=== PATIENT | female | born 1950 | race Caucasian/White ===

== ENCOUNTER 2018-04-17 07:08 | Day surgery (SDC) | payer OTHER ==
[2018-04-14 10:05] VITALS: BMI 39.0
[2018-04-17 08:45] LABS: URINE APPEARANCE SLCLOUDY; URINE BILIRUBIN NEGATIVE (<2.0 mg/dL); URINE COLOR YELLOW; URINE GLUCOSE (UA) 2+ (NEGATIVE); URINE KETONE TRACE (NEGATIVE); URINE LEUK ESTERASE NEGATIVE (NEGATIVE); URINE NITRITE NEGATIVE (NEGATIVE); URINE PROTEIN NEGATIVE (NEGATIVE); URINE UROBILINOGEN NEGATIVE mg/dL (0.2-1.0)
[2018-04-17] MEDS ORDERED: LIDOCAINE HCL 1%, 10 MG/ML (20ML VIAL) ONE (08:59)
[2018-04-17] MEDS ORDERED: METHYLENE BLUE 1% 10 MG/1 ML VIAL NR ONE (09:59)
[2018-04-17] MEDS ORDERED: PROPOFOL 20 ML ONE (10:48)
[2018-04-17] MEDS ORDERED: MIDAZOLAM HCL 2 MG/2 ML SINGLE DOSE VIAL ONE (10:48)
[2018-04-17] MEDS ORDERED: KETOROLAC TROMETHAMINE 30 MG/1 ML VIAL ONE (10:49)
[2018-04-17] MEDS ORDERED: DEXAMETHASONE SOD PHOSPHATE 4 MG/1 ML VIAL ONE (10:49)
[2018-04-17] MEDS ORDERED: LIDOCAINE HCL/PF 2% SDV 5ML VIAL ONE (10:49)
[2018-04-17] MEDS ORDERED: LIDOCAINE HCL 1% PRESERVATIVE FREE - 30ML VIAL IJ ONE (11:00)
[2018-04-17] MEDS ORDERED: SUCCINYLCHOLINE CHLORIDE 200 MG/10 ML VIAL ONE (12:04)
[2018-04-17] MEDS ORDERED: ceFAZolin SODIUM 1 GM VIAL ONE (12:47)
[2018-04-17] MEDS ORDERED: METHYLENE BLUE 1% 10 MG/1 ML VIAL IVPUSH ONE (14:30)
[2018-04-17 15:01] VITALS: BP 133/61; PULSE 88; TEMP 97.9
--- NOTE | 2018-04-18 07:08 | OP ---
DATE OF OPERATION: 04/17/2018 PREOPERATIVE DIAGNOSIS: Left breast cancer. POSTOPERATIVE DIAGNOSIS: Left breast cancer. PROCEDURE: Left breast lumpectomy and sentinel lymph node biopsy. SURGEON: Melanie Armando MD ANESTHESIA: General. ESTIMATED BLOOD LOSS: Minimal. COMPLICATIONS: None. This was a sterile procedure. INDICATION FOR PROCEDURE: Patient presented with a palpable mass in the inner left breast. A needle biopsy showed invasive carcinoma. My recommendation was a lumpectomy and sentinel node biopsy. The procedure was discussed with her. All of her questions answered. PROCEDURE IN DETAIL: Patient was brought to [facility], taken into the operating room, and after induction of general anesthesia and IV antibiotics, the right breast and axilla were prepped and draped in usual sterile fashion. Next, 2.5 mL of methylene blue diluted with 2.5 mL of injectable saline were injected into the left subareolar plexus by me, and the breast was massaged for 5 minutes. Prior to her coming into the operating theater, she was taken down to Nuclear Medicine where I injected technetium-labeled sulfur colloid as an intradermal injection in the left breast at 9 o'clock location. Then, she was brought up to the operating room and so forth. The left breast and axilla were prepped and draped in the usual sterile fashion. A 4-cm incision was made in the left axilla, carried down to the clavipectoral fascia to identify sentinel lymph node number 1, that was slightly firm in feeling, was hot and blue. This was sent as sentinel node number 1 hot and blue. There were 2 other sentinel lymph nodes that were hot but not blue. The third one was not as hot as the very first. Initially, I thought there was some activity in vivo. However, ex vivo did not have any activity. Therefore, the next specimen was sent as a left axillary non-sentinel node. There was no other blue dye radioactivity or pathologic-feeling lymph nodes in the left axilla. Therefore, once hemostasis was assured, the left breast lumpectomy was performed. An ellipse of skin was taken overlying the palpable mass in the left breast 9 o'clock to 10 o'clock location, 3-4 cm from the nipple, and an en bloc lumpectomy was performed, tagged with a long stitch lateral, short stitch superior, sent to Pathology for permanent section. Grossly, I felt I was close inferiorly. Therefore, I took a left breast new inferior margin with a stitch at the old margin. This was also sent to Pathology for permanent section. Hemostasis was assured with electrocautery. The parenchyma approximated with interrupted 2-0 Vicryl, skin approximated with interrupted 3-0 Vicryl running and 4-0 Biosyn. A sterile dressing with Tegaderm was applied. Next, the axillary incision was also closed in routine fashion with interrupted 3-0 Vicryl and running 4-0 Biosyn. A sterile dressing with Tegaderm was applied. She tolerated the procedure well, was extubated on the operating room table, taken to Recovery in good condition. Ismael [id number]
--- NOTE | 2018-04-21 17:39 | PATH ---
Surgical Pathology Report Patient Name: ROBERT LUTZ [facility]. Rec. #: [id number] /Age/Gender: 1950 (Age: 68) / F Account: [id number] Location: [facility] Taken: 04/17/2018 Received: 04/17/2018 Reported: 04/21/2018 Physicians: Melanie Armando M.D. Specimen(s) Received A: LEFT SENTINEL LYMPH NODE #1 B: LEFT SENTINEL LYMPH NODE #2 C: LEFT SENTINEL LYMPH NODE AXILLARY #3 D: LEFT BREAST TISSUE E: LEFT BREAST NEW INFERIOR MARGIN F: LEFT AXILLARY NON SENTINEL LYMPH NODE Clinical History Left breast cancer Final Diagnosis A. Axillary sentinel Lymph node #1, left, excision: One benign lymph node (0/1). B. Axillary sentinel Lymph node #2, left, excision: Benign fibroadipose tissue. No lymphoid tissue identified. C. Axillary sentinel Lymph node #3, left, excision: One benign lymph node (0/1). D. Breast, left, excision: INVASIVE DUCTAL CARCINOMA, POORLY DIFFERENTIATED (TUBULE SCORE: 3/3, NUCLEAR GRADE: 2/3, MITOTIC SCORE: 3/3; TOTAL SANDRINE SCORE: 8/9). INVASIVE CARCINOMA MEASURES 2.6 CM IN GREATEST DIMENSION, MICROSCOPICALLY. NO IN SITU COMPONENT IDENTIFIED. NO LYMPHOVASCULAR INVASION IDENTIFIED. SURGICAL MARGINS ARE UNINVOLVED BY CARCINOMA; CARCINOMA IS 1 MM FROM THE CLOSEST INFERIOR MARGIN. SEE SPECIMEN E FOR FINAL INFERIOR MARGIN. SKIN IS PRESENT AND UNINVOLVED BY CARCINOMA. PRIOR BIOPSY SITE CHANGES ARE PRESENT. PATHOLOGIC STAGE (pTNM): pT2 pN0 (sn). SEE INVASIVE CARCINOMA CASE SUMMARY BELOW. E. Breast, left, inferior margin, excision: Benign PREDOMINANTLY FATTY BREAST tissue. F. Axillary NON-sentinel Lymph node, left, excision: Benign fibroadipose tissue. No lymphoid tissue identified. Comments Breast Invasive Carcinoma: Surgical Pathology Case Summary (Based on AJCC TNM 8 th edition) Procedure _X_ Excision (less than total mastectomy) Specimen Laterality _X_ Left Tumor Size _X_ Greatest dimension of largest invasive focus >1 mm (specify exact measurement) (millimeters): _26__ mm Histologic Type _X_ Invasive carcinoma of no special type (ductal, not otherwise specified) Histologic Grade (Sandrine Histologic Score) Glandular (Acinar)/Tubular Differentiation _X_ Score 3 (<10% of tumor area forming glandular/tubular structures) Nuclear Pleomorphism _X_ Score 2 Mitotic Rate _X_ Score 3 Overall Grade _X_ Grade 3 (scores of 8) Tumor Focality _X_ Single focus of invasive carcinoma Ductal Carcinoma In Situ (DCIS) __X_ No DCIS in specimen Margins Invasive Carcinoma Margins _X__ Uninvolved by invasive carcinoma Distance from closest margin (millimeters): 1 mm in wide excision (D); negative in final margin (E) Closest margin: Inferior DCIS Margins _X_ No DCIS in specimen Regional Lymph Nodes Number of Lymph Nodes with Macrometastases (>2 mm): 0 Number of Lymph Nodes with Micrometastases (>0.2 mm to 2 mm and/or >200 cells): 0 Number of Lymph Nodes with Isolated Tumor Cells (=0.2 mm and =200 cells): 0 Number of Lymph Nodes Examined: 2 Number of Lawrence Nodes Examined : 2 Lymphovascular Invasion _X_ Not identified Pathologic Stage Classification (pTNM, AJCC 8th Edition) Primary Tumor (Invasive Carcinoma) (pT) _X__ pT2: Tumor >20 mm but =50 mm in greatest dimension Regional Lymph Nodes (pN) Modifier (required only if applicable) _X__ (sn): Lawrence node(s) evaluated. Category (pN) __X_ pN0: No regional lymph node metastasis identified or ITCs only Biomarker Studies Results of ER and WI studies performed on this specimen (block# D1) at [facility] are as follows: ER (clone [id number] mouse monoclonal antibody by [employer]): >90% nuclear staining with strong intensity (Positive). WI (clone16 mouse monoclonal antibody by [employer]): ~90% nuclear staining with moderate to strong intensity (Positive). Results of Her2 (IHC) & Ki-67 studies performed on this specimen (block# D1) at [place], [place] ([id number]) are as follows: Her2 IHC (EP3 from [employer], formerly known as [id number], using Ervin Polymer Refine detection kit): 0 (Negative). Ki67:~25% (Intermediate proliferative index). Positive and negative controls (internal if applicable) show appropriate results. Formalin fixation and cold ischemic times are within current ASCO/CAP recommendations for ER, WI and Her2 testing. Electronically Signed Winsome Crowder M.D. Gross Description A. Received in formalin labeled "left sentinel lymph node #1" is a 1.8 x 1.1 x 0.6 cm walker lymph node with attached fat. The specimen is bisected and entirely submitted in 2 cassettes. B. Received in formalin labeled "left sentinel lymph node #2," is a 5.0 x 4.0 x 0.4 cm aggregate of yellow, lobulated adipose tissue. No definitive lymph node is identified grossly. The fat is submitted in toto in 3 cassettes. C. Received in formalin labeled "left axillary sentinel lymph node #3," is a 1.4 x 1 0 x 0.5 cm walker lymph node with attached fat. The specimen is bisected and entirely submitted in one cassette. D. Received in formalin, labeled "left breast tissue," is a 6.2 x 5.5 x 4.6 cm. walker-yellow, irregular, portion of fibroadipose tissue. There is no needle localization wire present. There is a short suture marking the superior aspect and a long suture marking the lateral aspect, per the surgeon. The anterior surface displays a 4.7 x 1.8 cm walker, elliptical, unremarkable portion of skin. The specimen is inked as follows: superior blue; inferior green; medial yellow; lateral red; deep black. The specimen is serially sectioned from medial to lateral. Sectioning reveals a 2.6 x 2.2 x 2.1 cm walker, well- circumscribed mass 0.2 cm from the inferior margin and focally 0.3 cm from the superior margin. The mass is 0.6 cm from the deep margin and 0.9 cm from the skin. Machinist [employer]ic sections are submitted in 9 cassettes as follows: 1-full face section of mass; 2-mass with inferior margin; 3-4-mass with superior margin; 5-6-mass with deep margin; 7-skin; 8-lateral margin; 9-medial margin. Total formalin fixation time: Approximately 27 hours E. Received in formalin labeled "left inferior margin," is a 4.3 x 2.7 x 1.0 cm portion of fibroadipose tissue with a suture marking the old margin, per the surgeon. The new margin is inked blue and the specimen is serially sectioned. The specimen is entirely sequentially submitted in 8 cassettes. F. Received in formalin labeled "left axilla non-sentinel nodes," is a 4.3 x 4.0 x 0.3 cm aggregate of yellow, lobulated adipose tissue. No definitive lymph nodes are identified. The specimen is submitted in toto in 2 cassettes. 04/18/201804/18/2018
== END 2018-04-17 14:50 | disposition home or self-care (01) ==
LOC: JASU-SURG 07:08
PROVIDERS: ATTEND Surgery
PROC: C71L1ZZ Planar Nuclear Medicine Imaging of Upper Chest Lymphatics using Technetium 99m (Tc-99m) (ICD-10-PCS; 2018-04-17)
PROC: 0HBU0ZZ Excision of Left Breast, Open Approach (ICD-10-PCS; principal; 2018-04-17 09:00)
PROC: 07B90ZX Excision of Left Internal Mammary Lymphatic, Open Approach, Diagnostic (ICD-10-PCS; 2018-04-17 09:00)
DX: C50.912 Malignant neoplasm of unspecified site of left female breast (principal); E11.9 Type 2 diabetes mellitus without complications; E66.01 Morbid (severe) obesity due to excess calories
CPT/HCPCS: 78195-TC; 81003; 82962; 88307-TC; 88342-TC; 94760; A9541